=== PATIENT | male | born 1955 | race Caucasian/White ===

== ENCOUNTER → 2016-11-04 | Outpatient (CLI) | payer BC ==
--- NOTE | ~2016-11-04 | US85 ---
[facility] A Service of [facility] RADIOLOGY TEXT RESULTS PATIENT: EVIE CORBETT LOCATION: CNIV : 55 UNIT #: [id number] AGE: [address]: REKHA SIERRA SEX: M ORDER DR: [id number] [place] [id number] [facility]. [place], [place] [address] [id number] O MR#: [id number] Acc #: [id number] NAME: EVIE CORBETT : 1955 SEX: M STUDY DATE/TIME: 11/04/2016 12:41 UNIT: CNIV ROOM: STUDY DESCRIPTION: [facility] Attending Physician: Rekha Sierra Aprn Ordering Physician: Rekha Sierra Aprn MEDICAL IMAGING REPORT This report is preliminary unless electronic signature is present EXAM Right lower extremity venous duplex 11/04/2016 HISTORY Right lower extremity pain and swelling in the ankle for 1 week. Evaluate for deep vein thrombosis. No known trauma. TECHNIQUE Venous ultrasound examination of the right lower extremity was performed using grayscale, spectral Doppler and color flow Doppler imaging. FINDINGS The examination is negative. There is no evidence of right lower extremity deep venous thrombus from the groin to the lower calf. Visualized greater saphenous vein is also patent. IMPRESSION Negative examination. No evidence of right lower extremity deep venous thrombosis. Dictated by... Alex Malin M.D. THIS IS AN ELECTRONICALLY VERIFIED REPORT Alex Malin M.D. at 11/07/2016 12:47 PM KRT/pcl TD: 11/04/2016 18:14 JOB #: [id number] MEDICAL IMAGING REPORT [facility] A Service of [facility] RADIOLOGY TEXT RESULTS PATIENT: EVIE CORBETT LOCATION: CNIV : 55 UNIT #: [id number] AGE: [address]: REKHA SIERRA SEX: M ORDER DR: Page 1 of 1 COPY
== END | disposition home or self-care (01) ==
LOC: CNIV 12:20
DX: M79.89 Other specified soft tissue disorders (principal)
CPT/HCPCS: 93971